=== PATIENT | male | born 1945 | race Caucasian/White ===

== ENCOUNTER 2017-07-20 16:31 | Emergency (ER) | payer OTHER ==
[~2017-07-20] VITALS: Ht 177.8 cm; Wt 124.7 kg
[~2017-07-20 16:31] MED LIST: ALLO100 PO; ALLO300 PO; ALLOPURINOL; ATEN25 PO; ATENOLOL; CEPH500 PO; CIPR500 PO; CYCL10 PO; DOCU100 PO; FINA5 PO; GABA600 PO; HYDACE5 PO; HYDR1TAB94 PO; MELO7.5 PO; METF500 PO; METFORMIN; OMEG1CAP30 PO; Omeprazole20 M1; PROB500 PO; SOLI5 PO; TAMS.4ER PO; TOLT2ER PO; TRAZ50 PO; VESICARE
[2017-07-20] MEDS ORDERED: Ultram50 MG PO (18:16)
== END 2017-07-20 18:30 | disposition home or self-care (01) ==
LOC: ER 16:31
DX: M25.511 Pain in right shoulder (principal); Z79.899 Other long term (current) drug therapy; Z79.84 Long term (current) use of oral hypoglycemic drugs; I10 Essential (primary) hypertension
CPT/HCPCS: 99282

== ENCOUNTER 2017-10-27 06:16 | Day surgery (SDC) | payer OTHER ==
[~2017-10-27] VITALS: Ht 177.8 cm; Wt 122.7 kg
[~2017-10-27 06:16] MED LIST changes: +Ultram50 MG PO
[2017-10-27] MEDS ORDERED: ACET500 (06:46)
== END 2017-10-27 11:54 | disposition home or self-care (01) ==
LOC: ORSCSDS 06:16
PROVIDERS: Orthopaedic Surgery
PROC: 0LQ14ZZ Repair Right Shoulder Tendon, Percutaneous Endoscopic Approach (ICD-10-PCS; principal; 2017-10-27 08:00)
PROC: 0RCJ4ZZ Extirpation of Matter from Right Shoulder Joint, Percutaneous Endoscopic Approach (ICD-10-PCS; principal; 2017-10-27 08:00)
PROC: 0RNJ4ZZ Release Right Shoulder Joint, Percutaneous Endoscopic Approach (ICD-10-PCS; principal; 2017-10-27 08:00)
PROC: 0RBJ4ZZ Excision of Right Shoulder Joint, Percutaneous Endoscopic Approach (ICD-10-PCS; principal; 2017-10-27 08:00)
DX: M75.121 Complete rotator cuff tear or rupture of right shoulder, not specified as traumatic (principal); M66.821 Spontaneous rupture of other tendons, right upper arm; M75.41 Impingement syndrome of right shoulder; M19.011 Primary osteoarthritis, right shoulder; I10 Essential (primary) hypertension; E11.9 Type 2 diabetes mellitus without complications; K21.9 Gastro-esophageal reflux disease without esophagitis; G47.33 Obstructive sleep apnea (adult) (pediatric); E66.01 Morbid (severe) obesity due to excess calories; Z68.39 Body mass index [BMI] 39.0-39.9, adult; Z79.899 Other long term (current) drug therapy
CPT/HCPCS: 82947; C1713; J0171; J0690; J1100; J2250; J2405; J2710; J3010; J7120

== ENCOUNTER 2018-12-14 09:25 | Emergency (ER) | payer OTHER ==
[~2018-12-14] VITALS: Ht 177.8 cm; Wt 113.4 kg
[~2018-12-14 09:25] MED LIST changes: +ACET500
[2018-12-14] MEDS ORDERED: CEPH500 PO (11:05)
== END 2018-12-14 11:28 | disposition home or self-care (01) ==
LOC: ER 09:25
DX: S68.022A Partial traumatic metacarpophalangeal amputation of left thumb, initial encounter (principal); W29.8XXA Contact with other powered hand tools and household machinery, initial encounter; Z79.899 Other long term (current) drug therapy; Z79.84 Long term (current) use of oral hypoglycemic drugs; I10 Essential (primary) hypertension
CPT/HCPCS: 73140; 90471; 90714; 99283-25

== ENCOUNTER 2020-02-15 08:38 | Day surgery (SDC) | payer OTHER ==
[~2020-02-15] VITALS: Ht 177.8 cm; Wt 120.1 kg
== END 2020-02-15 10:45 | disposition home or self-care (01) ==
LOC: ORSCSDS 08:38
PROVIDERS: Internal Medicine Gastroenterology
PROC: 0DB58ZX Excision of Esophagus, Via Natural or Artificial Opening Endoscopic, Diagnostic (ICD-10-PCS; principal; 2020-02-15 10:00)
DX: K22.70 Barrett's esophagus without dysplasia (principal); K44.9 Diaphragmatic hernia without obstruction or gangrene; I10 Essential (primary) hypertension; K21.0 Gastro-esophageal reflux disease with esophagitis; G47.33 Obstructive sleep apnea (adult) (pediatric); E66.9 Obesity, unspecified; Z68.39 Body mass index [BMI] 39.0-39.9, adult; Z79.899 Other long term (current) drug therapy
CPT/HCPCS: 82947; 88305; J2704; J7120

== ENCOUNTER 2020-07-29 16:10 | Emergency (ER) | payer OTHER ==
[~2020-07-29] VITALS: Ht 175.3 cm; Wt 124.7 kg
[~2020-07-29 16:10] MED LIST changes: -ACET500; +ACET500 PO; -Omeprazole20 M1; +Omeprazole20 M1 PO
[2020-08-12] MEDS ORDERED: ZOCOR20 MG PO (09:24)
[2020-08-12] MEDS ORDERED: [UNRECOGNIZED DRUG - REMARK] PO (09:24)
== END 2020-07-29 19:26 | disposition home or self-care (01) ==
LOC: ER 16:10
DX: S20.211A Contusion of right front wall of thorax, initial encounter (principal); I10 Essential (primary) hypertension; Z79.84 Long term (current) use of oral hypoglycemic drugs; Z79.899 Other long term (current) drug therapy
CPT/HCPCS: 70450; 71101; 71250; 72125; 99284-25

== ENCOUNTER 2020-08-26 08:55 | Day surgery (SDC) | payer OTHER ==
[~2020-08-26] VITALS: Ht 177.8 cm; Wt 124.7 kg
[~2020-08-26 08:55] MED LIST changes: +ZOCOR20 MG PO; +[UNRECOGNIZED DRUG - REMARK] PO
[2020-08-26] MEDS ORDERED: METO25ER PO (09:11)
--- NOTE | 2020-08-26 09:35 | NUR ---
Ambulatory in Day Surgery History, Chart, Medications and Allergies reviewed before start of procedure. Lungs clear T/O to Auscultation. Pre-Op teaching done. Pt verbalizes understanding.
--- NOTE | 2020-08-26 14:43 | NUR ---
PT ARRIVED TO UNIT APPROX 1400 PT CURRENTLY RESTING IN BED DENIES PAIN OR NAUSEA. TOLERATING PO WELL. CURRENTLY SLEEPING IN BED CALL LIGHT IN REACH. POLAR PACK ON DRESSING CDI. PT REPORTS FULL SENSATION IN FEET, SLIGHTLY DIMINISHED IN R TOES.
[2020-08-26] MEDS ORDERED: B-COMPLEX WITH1 EAC3 (15:29)
--- NOTE | 2020-08-26 18:08 | NUR ---
SHIFT SUMMARY S/P L TKA NO ACUTE CHANGES SINCE ARRIVAL TO UNIT. PT WORKED WITH THERAPY, HAS BEEN UP AND AMBULATED TO RESTROOM. HE REPORTS MINIMAL PAIN DURING SHIFT. MEDICATED PER EMAR. TOLERATING PO WELL. AT DINNER. POLAR SANDEEP IN PLACE DURING SHIFT. DRESSING IS CDI.
[2020-08-27 05:26] LABS: BASOPHILS ABSOLUTE AUTO 0.02 K/mm3 (0.00-0.23); BASOPHILS PERCENT AUTO 0 % (0-2); EOSINOPHILS PERCENT AUTO 0 % (0-6); Hematocrit 35.8 % (37.0-53.0); Hemoglobin 12.5 g/dL (13.5-17.5); IMMATURE GRAN ABSOLUTE AUTO 0.06 K/mm3 (0.00-0.10); IMMATURE GRAN PERCENT AUTO 1 % (0-1); LYMPHOCYTES ABSOLUTE AUTO 1.11 K/mm3 (0.84-5.20); LYMPHOCYTES PERCENT AUTO 9 % (21-46); MONOCYTES ABSOLUTE AUTO 0.94 K/mm3 (0.16-1.47); MONOCYTES PERCENT AUTO 7 % (4-13); Mean Corpuscular HGB 31.1 pg (26.0-34.0); Mean Corpuscular HGB Conc 34.9 g/dL (31.5-36.5); Mean Corpuscular Volume 89 fL (80-100); Mean Platelet Volume 11.1 fL (9.1-12.4); NEUTROPHILS ABSOLUTE AUTO 10.77 K/mm3 (1.96-9.15); NEUTROPHILS PERCENT AUTO 83 % (41-73); Platelet Count 143 K/mm3 (150-400); RDW Coefficient Variation 12.3 % (11.7-14.2); RDW Standard Deviation 39.4 fL (35.1-46.3); Red Blood Cell Count 4.02 M/mm3 (4.30-5.90)
[2020-08-27 05:29] LABS: Anion Gap 5 mmol/L (6-16); Blood Urea Nitrogen 23 mg/dL (8-24); Bun/Creatinine Ratio 37.4 (12.0-20.0); CO2, Blood 27 mmol/L (21-32); Calcium, Blood 8.4 mg/dL (8.5-10.1); Chloride, Blood 109 mmol/L (98-108); Creatinine, Blood 0.62 mg/dL (0.60-1.20); Glomerular Filtration Rate >60 (60-); Glucose, Blood 180 mg/dL (70-99); Potassium, Blood 4.3 mmol/L (3.5-5.5); Sodium, Blood 141 mmol/L (136-145)
--- NOTE | 2020-08-27 08:11 | NUR ---
SUMMARY POD #1 LEFT TKA AUQUCEL DRSG REMAINS C/D/I, CIRC WNL, PT AMBULATING TO THE BATHROOM 1 ASSIST USING FWW, SCD'S WHILE AT REST. PAIN MANAGED WITH TYLENOL/TORADOL PER EMAR. PT USED HOME CPAP THROUGH THE NIGHT. TOLERATING PO INTAKE. REPORT GIVEN TO DAY RN, CALL LIGHT IN REACH
[2020-08-27] MEDS ORDERED: Percocet 5-3251 EACH PO (08:31)
[2020-08-27] MEDS ORDERED: Aspir 8181 MG PO (08:32)
--- NOTE | 2020-08-27 10:44 | NUR ---
DISCHARGE PT AND TIE WORKER PROVIDED WITH WRITTEN AND VERBAL DICHARGE INSTRUCTIONS, THEY REPORTED UNDERSTANDING. DRESSINGS PROVIDED. PAIN MANAGED AT TIME OF DISCHARGE. PT MEETING ALL GOALS, VOIDING, TOLERATING PO, AND CLEARED THERAPY. PT ASSISTED OUT IN W/C BY LINO MONCADA.
--- NOTE | 2020-08-28 10:13 | NUR ---
08/28/20 1013 Sendy Guaman VERIFICATIONS: EDIT CHART.
== END 2020-08-27 10:46 | disposition home or self-care (01) ==
LOC: ORSCMMR 08:55 → ORD 08:55 → ORSCMMR 08:58 → ORD 09:45 → SURS 14:26 → ORD 08-27 10:46
PROVIDERS: Orthopaedic Surgery
PROC: 0SRD0J9 Replacement of Left Knee Joint with Synthetic Substitute, Cemented, Open Approach (ICD-10-PCS; principal; 2020-08-26 09:45)
PROC: 0SPD0JZ Removal of Synthetic Substitute from Left Knee Joint, Open Approach (ICD-10-PCS; principal; 2020-08-26 09:45)
DX: M17.11 Unilateral primary osteoarthritis, right knee (principal); I10 Essential (primary) hypertension; E78.5 Hyperlipidemia, unspecified; G47.33 Obstructive sleep apnea (adult) (pediatric); K21.9 Gastro-esophageal reflux disease without esophagitis; E11.9 Type 2 diabetes mellitus without complications; E66.01 Morbid (severe) obesity due to excess calories; Z68.39 Body mass index [BMI] 39.0-39.9, adult; Z79.84 Long term (current) use of oral hypoglycemic drugs; Z79.899 Other long term (current) drug therapy
CPT/HCPCS: 36415; 73560-LT; 80048; 82947; 85025; 88300; 97110; 97116; 97162; A9270; C1713; C1776; J0171; J0690; J0735; J1885; J2250; J2370; J2704; J2795; J3010; J7120

== ENCOUNTER → 2020-09-26 | Outpatient (CLI) | payer OTHER ==
[~2020-09-26] MED LIST changes: +Aspir 8181 MG PO; +B-COMPLEX WITH1 EAC3; +METO25ER PO; +Percocet 5-3251 EACH PO
== END | disposition home or self-care (01) ==
LOC: LAB 11:30 → LAB SHORT 11:30
DX: N30.01 Acute cystitis with hematuria (principal); R30.0 Dysuria
CPT/HCPCS: 87077; 87086; 87186

== ENCOUNTER → 2020-11-24 | Outpatient (CLI) | payer OTHER | LOC: LAB SHORT 11:29 → LAB 11:29 | DX: D48.5 Neoplasm of uncertain behavior of skin (principal) | CPT/HCPCS: 88305 ==

== ENCOUNTER 2025-01-08 09:47 | Inpatient (IN) | payer OTHER ==
[~2025-01-08] VITALS: Ht 177.8 cm; Wt 116.2 kg
[~2025-01-08 09:47] MED LIST changes: +OMEP20ER PO; -Omeprazole20 M1 PO; +SIMV40 PO; -ZOCOR20 MG PO
[2025-01-08 11:22] LABS: BASOPHILS ABSOLUTE AUTO 0.03 K/mm3 (0.00-0.23); BASOPHILS PERCENT AUTO 0 % (0-2); EOSINOPHILS ABSOLUTE AUTO 0.10 K/mm3 (0.00-0.68); EOSINOPHILS PERCENT AUTO 1 % (0-6); Hematocrit 40.6 % (37.0-53.0); Hemoglobin 13.5 g/dL (13.5-17.5); IMMATURE GRAN ABSOLUTE AUTO 0.02 K/mm3 (0.00-0.10); IMMATURE GRAN PERCENT AUTO 0 % (0-1); LYMPHOCYTES ABSOLUTE AUTO 1.18 K/mm3 (0.84-5.20); LYMPHOCYTES PERCENT AUTO 17 % (21-46); MONOCYTES ABSOLUTE AUTO 0.55 K/mm3 (0.16-1.47); MONOCYTES PERCENT AUTO 8 % (4-13); Mean Corpuscular HGB Conc 33.3 g/dL (31.5-36.5); Mean Corpuscular Volume 91 fL (80-100); NEUTROPHILS ABSOLUTE AUTO 5.27 K/mm3 (1.96-9.15); NEUTROPHILS PERCENT AUTO 74 % (41-73); NRBC ABSOLUTE 0.00 K/mm3 (0.00-0.02); NRBC Auto 0.0 /100 WBC (0.0-0.2); Platelet Count 150 K/mm3 (150-400); RDW Coefficient Variation 14.2 % (11.7-14.2); RDW Standard Deviation 47.4 fL (35.1-46.3)
[2025-01-08 12:07] LABS: Alanine Aminotransfer (ALT/SGP 27.0 U/L (12-78); Albumin, Blood 3.5 g/dL (3.4-5.0); Albumin/Globulin Ratio 0.9 (0.8-1.8); Anion Gap 9.0 mmol/L (3-11); Aspartate Aminotrans (AST/SGOT 25.0 U/L (12-37); Bilirubin, Total 1.4 mg/dL (0.1-1.0); Blood Urea Nitrogen 23.0 mg/dL (8-24); CO2, Blood 27.0 mmol/L (21-32); Calcium, Blood 9.1 mg/dL (8.5-10.1); Chloride, Blood 107.0 mmol/L (98-108); Creatinine, Blood 0.71 mg/dL (0.60-1.20); Globulin, Blood 3.9 g/dL (2.2-4.0); Glucose, Blood 202.0 mg/dL (70-99); Potassium, Blood 4.5 mmol/L (3.5-5.5); Sodium, Blood 138.0 mmol/L (136-145); Total Protein, Blood 7.4 g/dL (6.4-8.2)
[2025-01-08] MEDS ORDERED: Ipratropium/Albuterol SulF 2.5-0.5MG/3 ML Amp INH ONE ×2 (12:15→12:20)
[2025-01-08] MEDS ORDERED: Metoprolol Tartrate 1 MG/ML 5 ML VIAL IV PRN (17:15)
[2025-01-08 18:18] VITALS: BP 136/99
[2025-01-08] MEDS ORDERED: PIOG30 PO (18:28)
[2025-01-08] MEDS ORDERED: MOBIC15 MG PO (18:28)
[2025-01-08] MEDS ORDERED: FISH OIL 1,0001 EA10 PO (18:29)
[2025-01-08] MEDS ORDERED: B-COMPLEX WITH1 EAC2 PO (18:29)
[2025-01-08] MEDS ORDERED: VITAMIN D325 MC3 PO (18:31)
--- NOTE | 2025-01-08 18:32 | NUR ---
PT ADMITTED TO UNIT AT APPROX 1810. PT ABLE TO STAND AND AMBULATE TO HOSPITAL BED FROM [facility]. CLEAN ATTENDS AND GOWN PLACED ON PT. PURWICK IN PLACE FOR STRICT I/O. TELE MONITOR IN PLACE - AFIB @ 110. VITALS STABLE - SIMILAR TO IN ER. PT DENIES PAIN - REPORTS CONTINUED SOB. PT SATING ABOVE 92% ON RA. A/Ox4. MED REC COMPLETED USING PT MED LIST PROVIDED FROM HOME AND MED CLAIM HISTORY. ADMISSION HX AND ASSESSMENT TO BE COMPLETED BY EMILY RN. PT ORIENTED TO ROOM AND CALL SYSTEM. EDUCATED ON NO SMOKING POLICY. PT CURRENTLY RESTING IN BED WITH CALL LIGHT WITHIN REACH, BED IN LOWEST POSITION, SCD ON.
[2025-01-08 19:44] VITALS: BP 120/95
[2025-01-08] MEDS ORDERED: Insulin Human Lispro 100 Units/ML 3ML Syringe SC SCH (21:00)
[2025-01-09] VITALS (7 sets, daily range): BP systolic 106–124; BP diastolic 83–100
--- NOTE | 2025-01-09 03:27 | NUR ---
PAD EXTRACTOR TENDER SUMMARY VSS. ALERT AND ORIENTED. PT WAS ADMITTED FOR CHF EXACERBATION WITH A FIB AND RVR. MED TELE A FIB IN THE LOW 100'S. ON CPAC AT NIGHT. CONT PULSE OX, SATS IN THE 90'S. PUREWICK IN USE. OUTPUT >1000 C, CLEAR RADHA. ABLE TO MOVE SELF IN BED WITHOUT ASSIST FOR COMFORT. HAS BEEN RESTING QUIETLY WITH EFW INTERRUPTIONS. CALL LIGHT IN REACH, RAILS UP X 2 AND BED IN LOW POSITION FOR SAFETY. WILL CONTINUE TO MONITOR.
[2025-01-09 05:44] LABS: Hematocrit 39.8 % (37.0-53.0); Hemoglobin 13.1 g/dL (13.5-17.5); Mean Corpuscular HGB Conc 32.9 g/dL (31.5-36.5); Mean Corpuscular Volume 90 fL (80-100); NRBC ABSOLUTE 0.00 K/mm3 (0.00-0.02); NRBC Auto 0.0 /100 WBC (0.0-0.2); Platelet Count 149 K/mm3 (150-400); RDW Coefficient Variation 14.3 % (11.7-14.2); RDW Standard Deviation 46.7 fL (35.1-46.3)
[2025-01-09 06:53] LABS: Alanine Aminotransfer (ALT/SGP 26.0 U/L (12-78); Albumin, Blood 3.5 g/dL (3.4-5.0); Albumin/Globulin Ratio 0.9 (0.8-1.8); Anion Gap 7.0 mmol/L (3-11); Aspartate Aminotrans (AST/SGOT 25.0 U/L (12-37); Bilirubin, Total 1.4 mg/dL (0.1-1.0); Blood Urea Nitrogen 17.0 mg/dL (8-24); CO2, Blood 29.0 mmol/L (21-32); Calcium, Blood 8.8 mg/dL (8.5-10.1); Chloride, Blood 104.0 mmol/L (98-108); Creatinine, Blood 0.7 mg/dL (0.60-1.20); Globulin, Blood 3.9 g/dL (2.2-4.0); Glucose, Blood 161.0 mg/dL (70-99); Potassium, Blood 4.0 mmol/L (3.5-5.5); Sodium, Blood 136.0 mmol/L (136-145); Total Protein, Blood 7.4 g/dL (6.4-8.2)
[2025-01-09] MEDS ORDERED: Cholecalciferol 1000 Unit Tablet (=25MCG) PO SCH (09:00)
[2025-01-09] MEDS ORDERED: Vitamin B Complex 1 EA Softgel PO SCH (09:00)
[2025-01-09] MEDS ORDERED: Enoxaparin 40 MG/0.4 ML SYR SC SCH (09:00)
--- NOTE | 2025-01-09 19:04 | NUR ---
SHIFT SUMMARY: PT A&O X4. PLEASANT AND COOPERATIVE WITH CARE. VERY [place]. ECHO COMPLETED THIS SHIFT. SHOWING AN EF OF 20-25%. SBA c FWW WITH ALL TRASNFERS. PT STARTED SHIFT ON MALE PUREWICK; NOW USING URINAL FOR STRICT I&O. RECEIVING IV DIURETICS. TELE IN PLACE RUNNING AFIB c PVC'S IN THE 110'S. RA DURING DAY WITH CPAP AT NIGHT. PT STATED HE HAD AN EPISODE OF SOB AFTER HIS SHOWER TODAY BUT DID NOT REPORT IT TO THIS RN UNTIL SHIFT CHANGE. CALL LIGHT IN REACH. BED IN LOWEST POSITION.
[2025-01-10 04:13] VITALS: BP 103/63
--- NOTE | 2025-01-10 06:25 | NUR ---
SHIFT SUMMARY AT START OF SHIFT, PT LYING IN BED. APPROX 1939, PT FAMILY VISITING. APPROX 2019, THEY LEFT AND WENT HOME. PT HAD SEVERAL INSTANCES OF TACHYCARDIA, REACHING 140 S TO 150 S. EACH TIME WAS WHILE PT WAS UPRIGHT TRYING TO VOID. APPROX 2299, PT CALLED TO BE PUT ON CPAP. PT RESTING PEACEFULLY. DURING THE NIGHT, WHILE SLEEPING, PT HR WOULD DIP DOWN TO LOW 40 S BRIEFLY, THEN RETURN TO NORMAL. THIS HAPPENED REPEATEDLY. PT STABLE AND STILL SLEEPING COMFORTABLY.
[2025-01-10 07:43] VITALS: BP 96/64
[2025-01-10 07:46] LABS: Magnesium, Blood 2.2 mg/dL (1.6-2.4)
[2025-01-10 07:49] LABS: Albumin, Blood 3.7 g/dL (3.4-5.0); Anion Gap 9 mmol/L (3-11); Blood Urea Nitrogen 21 mg/dL (8-24); CO2, Blood 26 mmol/L (21-32); Calcium, Blood 9.6 mg/dL (8.5-10.1); Chloride, Blood 105 mmol/L (98-108); Creatinine, Blood 0.87 mg/dL (0.60-1.20); Glucose, Blood 125 mg/dL (70-99); Phosphorus, Blood 4.0 mg/dL (2.5-4.9); Potassium, Blood 3.7 mmol/L (3.5-5.5); Sodium, Blood 136 mmol/L (136-145)
[2025-01-10 10:50] VITALS: BP 104/69
[2025-01-10 15:32] VITALS: BP 98/84
[2025-01-10] MEDS ORDERED: Adipex-P37.5 M1 PO (16:31)
--- NOTE | 2025-01-10 17:43 | NUR ---
SHIFT SUMMARY: PT A&O X4. PLEASANT AND COOPERATIVE WITH CARE. [place]; HEARING AIDS IN ROOM. ECHO RESULTS SHOWING EF OF 20-25%. FIRST PART OF STRESS TEST COMPLETED THIS SHIFT. SECOND PORTION TO BE COMPLETED TOMORROW. PT TO NOT HAVE CAFFEINE AFTER 1900 AND NPO AFTER MIDNIGHT. PT HAVING SOME HYPOTENSION THIS SHIFT. INDEPENDENT IN ROOM TO BATHROOM. TELE IN PLACE SHOWING AFIB WITH FREQUENT PVC'S WITH A PULSE GREATER THAN 100 BPM. DAILY WEIGHT COMPLETED THIS SHIFT. CALL LIGHT IN REACH. BED IN LOWEST POSITION.
[2025-01-10 20:27] VITALS: BP 126/95
[2025-01-11 00:13] VITALS: BP 121/76
[2025-01-11 05:03] VITALS: BP 126/74
--- NOTE | 2025-01-11 06:26 | NUR ---
SHIFT SUMMARY: Pt admitted for acute CHF and is a full code. Is alert and able to make needs known. ADLs have been IND. denies pain or discomfort when asked. Telly noted afib in the 100s with PVCs. has been NPO starting at midnight pending a procedure. Had 1 run of VTAC at 5 beats. PT was asleep. Charge aware.
[2025-01-11 07:27] VITALS: BP 119/84
[2025-01-11 09:24] LABS: Albumin, Blood 3.8 g/dL (3.4-5.0); Anion Gap 11 mmol/L (3-11); Blood Urea Nitrogen 25 mg/dL (8-24); CO2, Blood 27 mmol/L (21-32); Calcium, Blood 9.3 mg/dL (8.5-10.1); Chloride, Blood 103 mmol/L (98-108); Creatinine, Blood 0.85 mg/dL (0.60-1.20); Glucose, Blood 151 mg/dL (70-99); Phosphorus, Blood 3.9 mg/dL (2.5-4.9); Potassium, Blood 4.0 mmol/L (3.5-5.5); Sodium, Blood 137 mmol/L (136-145)
[2025-01-11] MEDS ORDERED: Aminophylline 250MG / 10ML 10 ML Vial ONE (12:58)
[2025-01-11 15:54] VITALS: BP 107/67
--- NOTE | 2025-01-11 18:28 | NUR ---
SHIFT SUMMARY PATIENT A/OX4, ABLE TO MAKE NEEDS KNOWN. INDEPENDENT IN ROOM. PLEASANT AND COOPERATIVE, HARD OF HEARING. STRESS TEST COMPLETED THIS EVENING SHOWING OLD INFARCT AND EF OF 26%. TELEMETRY IN PLACE, PATIENT AFIB IN 110s AT BASELINE AND HAVE HAD MULTIPLE CALLS THIS SHIFT WHILE PATIENT IS AMBULATING THAT HEART RATE INCREASES TO 150s. FAMILY AT BEDSIDE THROUGHOUT THE SHIFT AND UPDATED ON PATIENT'S STATUS. NO OTHER CONCERNS AT THIS TIME, WILL CONTINUE TO MONITOR.
[2025-01-11 19:18] VITALS: BP 121/87
[2025-01-12 00:13] VITALS: BP 113/86
[2025-01-12 04:49] VITALS: BP 135/98
[2025-01-12 06:18] LABS: Albumin, Blood 3.8 g/dL (3.4-5.0); Anion Gap 11 mmol/L (3-11); Blood Urea Nitrogen 33 mg/dL (8-24); CO2, Blood 24 mmol/L (21-32); Calcium, Blood 9.2 mg/dL (8.5-10.1); Chloride, Blood 103 mmol/L (98-108); Creatinine, Blood 0.95 mg/dL (0.60-1.20); Glucose, Blood 144 mg/dL (70-99); Phosphorus, Blood 4.2 mg/dL (2.5-4.9); Potassium, Blood 3.7 mmol/L (3.5-5.5); Sodium, Blood 134 mmol/L (136-145)
--- NOTE | 2025-01-12 06:28 | NUR ---
SUMMARY ALERT & ORIENTED. STILL ON TELE W/ AF AND HIGHLY TACHY DURING AMBULATION W/ ACTIVITY. QUIET TYPE OF PERSONALITY, DENIES ANY S/SX WHEN ASKED. USES CPAP WHEN ASLEEP CONSISTENTLY. APPEARS TO HAVE SLEPT WELL AT NIGHT W/ OCCASIONS OF WAKING UP TO WALK TO THE BR.
[2025-01-12 07:23] VITALS: BP 121/73
[2025-01-12 11:40] VITALS: BP 110/81
[2025-01-12] MEDS ORDERED: ASPI81CH PO (12:01)
[2025-01-12] MEDS ORDERED: JARDIANCE10 MG PO ×2 (12:05→12:06)
[2025-01-12] MEDS ORDERED: FURO20 PO (12:07)
[2025-01-12] MEDS ORDERED: LISI5 PO (12:07)
[2025-01-12] MEDS ORDERED: METO25ER PO (12:08)
[2025-01-12] MEDS ORDERED: METF500 PO (12:08)
--- NOTE | 2025-01-12 14:06 | NUR ---
DISCHARGE SUMMARY/SHIFT SUMMARY: PATIENT A+O X4 THROUGHOUT THIS DAY. PATIENT COOPERATIVE c CARE AND EXPRESSED HAVING EXCITEMENT ABOUT GOING HOME. PATIENTS LUNGS CLEAR UPON ASSCULTATION. HEART RYHTHM A-FIB c OCCATIONAL BBB PVC'S. HEART RATE UP IN 150'S WHEN AMBULATING AND LOW 100'S WHEN RESTING IN BED. DOCTOR AWARE OF THIS FINDING. PATIENT HAD NO COMPLAINTS OR ISSUES c AMBULATION OR VOIDING. THIS PATIENT DISCHARGED AROUND 1258 c SON TAKING THIS PATIENT HOME AND PICKING UP MEDICATIONS. BELONGINGS RETURNED. EDUCATED ON DISCHARGE PLAN, MEDICATIONS, AND PLAN OF CARE GOING FORWARD. EDUCATED PATIENT ON IMPORTANCE OF KEEPING FOLLOW-UP APPOINTMENT. PATIENT VERBALIZED UNDERSTANDING.
== END 2025-01-12 12:58 | disposition home or self-care (01) | DRG 291 ==
LOC: ER 09:47 → MEDS 14:43
PROVIDERS: Physician Assistant; ADMIT Internal Medicine
PROC: 5A09357 Assistance with Respiratory Ventilation, Less than 24 Consecutive Hours, Continuous Positive Airway Pressure (ICD-10-PCS; principal; 2025-01-10)
DX: I11.0 Hypertensive heart disease with heart failure (principal); I50.21 Acute systolic (congestive) heart failure; I47.20 Ventricular tachycardia, unspecified; Z68.41 Body mass index [BMI] 40.0-44.9, adult; I42.0 Dilated cardiomyopathy; I42.8 Other cardiomyopathies; I48.91 Unspecified atrial fibrillation; R73.03 Prediabetes; E78.5 Hyperlipidemia, unspecified; M10.9 Gout, unspecified; G47.00 Insomnia, unspecified; E66.01 Morbid (severe) obesity due to excess calories; G47.33 Obstructive sleep apnea (adult) (pediatric); N40.0 Benign prostatic hyperplasia without lower urinary tract symptoms; K21.9 Gastro-esophageal reflux disease without esophagitis; R79.1 Abnormal coagulation profile; Z96.652 Presence of left artificial knee joint; Z60.2 Problems related to living alone; Z79.82 Long term (current) use of aspirin
CPT/HCPCS: 36415; 71046; 71260; 78452; 80053; 80069; 82947; 83036; 83735; 83880; 84439; 84443; 84481; 84484; 85025; 85027; 85379; 93005; 93010; 93017; 94660; 94762; 99285-25; A6590; A9270; A9500; C8929; J0280; J1650; J1938; J2785; Q9957; Q9967

== ENCOUNTER 2025-06-28 08:36 | Day surgery (SDC) | payer OTHER ==
[2025-06-28] VITALS (11 sets, daily range): BP systolic 104–152; BP diastolic 77–112
[~2025-06-28 08:36] MED LIST changes: +ASPI81CH PO; +Adipex-P37.5 M1 PO; +B-COMPLEX WITH1 EAC2 PO; +FISH OIL 1,0001 EA10 PO; +FURO20 PO; +JARDIANCE10 MG PO; +LISI5 PO; +MOBIC15 MG PO; +PIOG30 PO; +VITAMIN D325 MC3 PO
[2025-06-28] MEDS ORDERED: NS 1,000 ML IV ONE (08:53)
[2025-06-28] MEDS ORDERED: ELIQUIS5 M2 PO (08:57)
[2025-06-28] MEDS ORDERED: FARXIGA10 MG PO (08:57)
[2025-06-28] MEDS ORDERED: OMEP20ER PO (08:58)
[2025-06-28] MEDS ORDERED: PROB500 PO (08:59)
[2025-06-28] MEDS ORDERED: Percocet 5-3251 EACH PO (08:59)
[2025-06-28] MEDS ORDERED: ENTRESTO 97 MG1 EACH PO (09:00)
[2025-06-28] MEDS ORDERED: Flumazenil 0.1 MG / ML 5ML Vial ONE (09:19)
[2025-06-28] MEDS ORDERED: Midazolam HCl 1MG / ML 2ML Vial ONE (09:19)
[2025-06-28] MEDS ORDERED: Naloxone HCl 0.4MG / ML 1ML Vial ONE (09:19)
[2025-06-28] MEDS ORDERED: FentaNYL Citrate 50 MCG/ML 2 ML Injection ONE (09:20)
--- NOTE | 2025-06-28 10:30 | NUR ---
PT VERBALIZED UNDERSTANDING OF WRITTEN AND VERBAL D/C INST. IV REMOVED. SR 85 BPM ON D/C. PT TAKEN OUT OF THE [facility]RT CENTER VIA W/C.
== END 2025-06-28 23:00 | disposition home or self-care (01) ==
LOC: MHTC 08:36
DX: I48.91 Unspecified atrial fibrillation (principal)
CPT/HCPCS: 92960; 93005; 93010; 99152; J2250; J2312; J3010; J7030